=== PATIENT | male | born 1975 | race Caucasian/White ===

== ENCOUNTER 2024-06-01 15:36 | Emergency (ER) | payer BC ==
[~2024-06-01] VITALS: Ht 190.5 cm; Wt 122.5 kg
[2024-06-01] MEDS ORDERED: BUPR1FIL3 SL (16:08)
[2024-06-01] MEDS ORDERED: GABA300C PO (16:08)
[2024-06-01] MEDS ORDERED: ACETAMINOPHEN 500 MG TABLET ONE (17:05)
[2024-06-01] MEDS ORDERED: predniSONE 50 MG TABLET ONE (17:05)
[2024-06-01] MEDS: predniSONE 50 MG TABLET PO ONE (17:06)
[2024-06-01] MEDS: ACETAMINOPHEN 500 MG TABLET PO ONE (17:06)
[2024-06-01] MEDS ORDERED: PRED50TA PO (17:17)
[2024-06-01 17:28] LABS: BASOPHILS % (AUTO) 0.4 % (0.0-2.0); EOSINOPHILS # (AUTO) 0.2 K/uL (0.0-0.7); HEMATOCRIT 37.1 % (36.7-47.1); HEMOGLOBIN 12.7 g/dL (12.5-16.3); LYMPHOCYTES # (AUTO) 1.7 K/uL (0.8-4.8); LYMPHOCYTES % (AUTO) 21.8 % (20.5-51.5); MEAN CORPUSCULAR HEMOGLOBIN 29.6 uug (23.8-33.4); MEAN CORPUSCULAR HGB CONC 34 g/dL (32.5-36.3); MEAN CORPUSCULAR VOLUME 86.5 fL (73.0-96.2); MONOCYTES # (AUTO) 0.7 K/uL (0.1-1.30); MONOCYTES % (AUTO) 8.6 % (0.0-11.0); NEUTROPHILS # (AUTO) 5.3 K/uL (1.8-8.9); NEUTROPHILS % (AUTO) 66.2 % (38.5-71.5); PLATELET COUNT (AUTO) 279 K/uL (152-348); RED BLOOD CELL COUNT(AUTO) 4.29 MIL/uL (4.06-5.63); RED CELL DISTRIBUTION WIDTH 13.2 % (12.1-16.2); WHITE BLOOD COUNT (AUTO) 7.9 K/uL (3.6-10.2)
[2024-06-01 17:35] LABS: DIFFERENTIAL COMMENT 1
[2024-06-01 17:46] LABS: ALBUMIN 3.6 g/dL (3.4-5.0); BILIRUBIN,DIRECT 0.1 mg/dL (0.0-0.2); BILIRUBIN,TOTAL 0.4 mg/dL (0.2-1.0); CALCIUM 9.4 mg/dL (8.5-10.1); CREATININE 0.9 mg/dL (0.6-1.3); TOTAL PROTEIN, SERUM 7.8 g/dL (6.4-8.2)
[2024-06-01 18:36] VITALS: BP 130/78; O2SAT 99
== END 2024-06-01 18:36 | disposition home or self-care (01) ==
LOC: ER 15:36
DX: M10.9 Gout, unspecified (principal); M79.671 Pain in right foot; F15.10 Other stimulant abuse, uncomplicated; Z79.52 Long term (current) use of systemic steroids; Z79.899 Other long term (current) drug therapy
CPT/HCPCS: 99284; 93971; 80076; 80048; 82550; 85025; 36415; 73590; 73620; J7512; A4606; A4663; A9150

== ENCOUNTER 2024-06-09 07:57 | Emergency (ER) | payer BC ==
[~2024-06-09] VITALS: Ht 188 cm; Wt 95.3 kg
[~2024-06-09 07:57] MED LIST: BUPR1FIL3 SL; GABA300C PO; PRED50TA PO
[2024-06-09] MEDS ORDERED: KETOROLAC TROMETHAMINE 15 MG INJ ONE (08:14)
[2024-06-09] MEDS: KETOROLAC TROMETHAMINE 15 MG INJ IM ONE (08:19)
[2024-06-09] MEDS ORDERED: predniSONE 20 MG TABLET ONE (09:06)
[2024-06-09] MEDS: predniSONE 20 MG TABLET PO ONE (09:06)
[2024-06-09] MEDS ORDERED: PRED50TA PO (09:09)
[2024-06-09] MEDS ORDERED: INDO-12 PO (09:09)
[2024-06-09 09:34] VITALS: BP 134/84; TEMP 98.8; O2SAT 98
== END 2024-06-09 09:15 | disposition home or self-care (01) ==
LOC: ER 07:57
DX: M10.9 Gout, unspecified (principal); F15.10 Other stimulant abuse, uncomplicated; Z79.52 Long term (current) use of systemic steroids; Z79.899 Other long term (current) drug therapy
CPT/HCPCS: A4606; A4663; J1885; J7512